=== PATIENT | female | born 1970 | race African-American/Black ===

== ENCOUNTER → 2016-09-17 | Outpatient (CLI) | payer MEDICARE ==
[2016-09-17 14:25] LABS: CHLAM PCR NOT DETECTED (NOT DETECT)
== END ==
LOC: LAB 12:46
PROVIDERS: ATTEND Nurse Practitioner Acute Care
DX: N39.0 Urinary tract infection, site not specified (principal); N89.8 Other specified noninflammatory disorders of vagina
CPT/HCPCS: 87086; 87088; 87186; 87210; 87491; 87591

== ENCOUNTER → 2017-03-21 | Outpatient (CLI) | payer MEDICARE, BC ==
--- NOTE | 2017-03-21 11:43 | WOMENS IMAGING REPORT ---
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 Selected color Doppler images recorded. LIMITATIONS: None. FINDINGS: Patient indicates a palpable abnormality in the right axilla. In this area, a 3 x 2.3 x 1 .8 cm lymph node and a 2.8 x 2.1 x 1.9 cm lymph node are present. Both of these lymph nodes exhibit cortical thickening, up to 9 mm in thickness. Given history of kena or breast cancer, ultrasound-guided core biopsy of these lymph nodes is recommended. IMPRESSION: Palpable abnormality along the right axilla correlates with 2 adjacent lymph nodes with cortical thickening. Ultrasound-guided core biopsy should be considered. BIRAD: 1 Negative. RECOMMENDATION: RECOMMENDED FOLLOW-UP: Follow-up as clinically indicated. COMMENT: The [employer] ([employer]) has developed recommendations for screening MRI of the breasts in certain patient populations, to be used in conjunction with mammography. Breast MRI s urveillance may be appropriate for women with more than 20% lifetime risk of developing breast cancer as determined by genetic testing, significant family history of the disease, or history of mantle r adiation for Hodgkins Disease. ACR Practice Guidelines 2007. TECHNICAL DOCUMENTATION: JOB ID: [id number] [employer]- All Rights Reserved
== END ==
LOC: WI 07:09
PROVIDERS: ATTEND Internal Medicine
DX: C50.412 Malignant neoplasm of upper-outer quadrant of left female breast (principal)
CPT/HCPCS: 76641

== ENCOUNTER → 2017-03-28 | Day surgery (SDC) | payer MEDICARE, BC ==
--- NOTE | 2017-04-02 12:20 | RADIOLOGY REPORT (SQ) ---
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 The patient was scanned and the area of interest in the right lower axilla/right lateral chest wall i n the area of palpable abnormality. This demonstrates enlarged lymph nodes which are similar compare d 03/21/2017. This area was targeted for ultrasound-guided core biopsy. After sterile skin prep and 3.5 mL local lidocaine 1% for skin and deep tissue anesthesia, a 14 gauge coaxial core biopsy needle was used to obtain several cores of tissue from the lesion. Under ultras ound guidance, a ribbon clip was placed in the areas sampled. There were no immediate post-procedure complications. Pathology yields a diagnosis of lymphoid population, favor follicular hyperplasia. No carcinoma iden tified Pathology is concordant. LIMITATIONS: None. FINDINGS: Ultrasound-guided right axilla/lateral chest wall lymph node biopsy as above. IMPRESSION: ULTRASOUND-GUIDED CORE BIOPSY OF THE RIGHT AXILLARY/ RIGHT LATERAL CHEST WALL LYMPH NODE S YIELDS A DIAGNOSIS OF LYMPHOID POPULATION, FAVOR FOLLICULAR HYPERPLASIA. NO CARCINOMA. COMMENT: Patient medication list reviewed: Yes- Quality ID# [id number]:Eligible professional attests to doc umenting in the medical record they obtained, updated, or reviewed the patient's current medications. TECHNICAL DOCUMENTATION: JOB ID: [id number] 1740[employer]- All Rights Reserved
== END ==
LOC: EDSTATUS 14:30 → RAD 14:31
PROVIDERS: ATTEND Internal Medicine
PROC: 07B53ZX Excision of Right Axillary Lymphatic, Percutaneous Approach, Diagnostic (ICD-10-PCS; principal; 2017-03-28)
DX: C50.412 Malignant neoplasm of upper-outer quadrant of left female breast (principal); R22.9 Localized swelling, mass and lump, unspecified
CPT/HCPCS: 38505; 76942; 88184; 88185; 88233; 88262; 88305; 88341; 88342

== ENCOUNTER → 2018-02-27 | Outpatient (CLI) | payer BC, MEDICARE ==
--- NOTE | 2018-02-27 18:15 | RADIOLOGY REPORT (SQ) ---
EXAM DESCRIPTION: WRIST RIGHT 2 VIEWS COMPLETED DATE/TIME: 02/27/2018 5:44 pm REASON FOR STUDY: M25.531 PAIN IN RIGHT WRIST R10.31 RIGHT LOWER QUADRANT PAIN M25.531 PAIN IN RIG HT WRIST COMPARISON: None. NUMBER OF VIEWS: Two views. TECHNIQUE: AP and lateral radiographic images acquired of the right wrist. LIMITATIONS: None. FINDINGS: MINERALIZATION: Normal. BONES: No acute fracture or dislocation. No worrisome bone lesions. Normal alignment. SOFT TISSUES: No soft tissue swelling. No foreign body. OTHER: No other significant finding. IMPRESSION: NO RADIOGRAPHIC EVIDENCE OF ACUTE INJURY. TECHNICAL DOCUMENTATION: JOB ID: [id number] [place]-72 2010 [employer]- All Rights Reserved Reading location - IP/workstation name: [employer]
--- NOTE | 2018-02-27 22:09 | RADIOLOGY REPORT (SQ) ---
EXAM DESCRIPTION: CT ABD/PELVIS WITH IV ORAL COMPLETED DATE/TIME: 02/27/2018 7:45 pm REASON FOR STUDY: R10.31RIGHT LOWER QUADRANT PAIN R10.31 RIGHT LOWER QUADRANT PAIN M25.531 PAIN IN RIGHT WRIST COMPARISON: 06/07/2016. TECHNIQUE: CT scan of the abdomen and pelvis performed using helical scanning technique with dynamic intravenous contrast injection. No oral contrast. Images reviewed with lung, soft tissue, and bone windows. Reconstructed coronal and sagittal MPR images reviewed. Delayed images for evaluation of the urinary system also acquired. All images stored on PACS. All CT scanners at this facility use dose modulation, iterative reconstruction, and/or weight based d osing when appropriate to reduce radiation dose to as low as reasonably achievable (ALARA). [facility]: Dose Right [facility]: CareDose [facility]: Dose Right [facility]: Teradose 4D [facility]: AskYou CONTRAST TYPE AND DOSE: contrast/concentration: Isovue 350.00 mg/ml; Total Contrast Delivered: 100.0 ml; Total Saline Delivered: 42.0 ml RENAL FUNCTION: Creatinine 0.6. RADIATION DOSE: CT Rad equipment meets quality standard of care and radiation dose reduction techniq ues were employed. CTDIvol: 19.9 - 21.0 mGy. DLP: 2271 mGy-cm.. LIMITATIONS: None. FINDINGS: LOWER CHEST: No significant findings. No nodules or infiltrates. LIVER: Normal size. No masses. Diffuse fatty infiltration. No dilated ducts. SPLEEN: Normal size. No focal lesions. PANCREAS: No masses. No significant calcifications. No adjacent inflammation or peripancreatic fluid collections. Pancreatic duct not dilated. GALLBLADDER: No identified stones by CT criteria. No inflammatory changes to suggest cholecystitis. ADRENAL GLANDS: No significant masses or asymmetry. RIGHT KIDNEY AND URETER: No solid masses. No significant calcifications. No hydronephrosis or hyd roureter. LEFT KIDNEY AND URETER: No solid masses. No significant calcifications. No hydronephrosis or hydr oureter. AORTA AND VESSELS: No aneurysm. No dissection. Renal arteries, SMA, celiac without stenosis. RETROPERITONEUM: No retroperitoneal adenopathy, hemorrhage or masses. BOWEL AND PERITONEAL CAVITY: No masses or inflammatory changes. No free fluid or peritoneal masses. APPENDIX: Normal. PELVIS: No mass. No free fluid. Normal bladder. ABDOMINAL WALL: Surgical changes with clips. No masses. No hernias. BONES: No significant or acute findings. OTHER: No other significant finding. IMPRESSION: FATTY INFILTRATION OF THE LIVER. OTHERWISE NO SIGNIFICANT OR ACUTE FINDING IN THE ABDOM EN OR PELVIS ON CT SCAN WITH IV CONTRAST. TECHNICAL DOCUMENTATION: JOB ID: [id number] Quality ID # [id number]: Final reports with documentation of one or more dose reduction techniques (e.g., Au tomated exposure control, adjustment of the mA and/or kV according to patient size, use of iterative reconstruction technique) 2010 [employer]- All Rights Reserved Reading location - IP/workstation name: [email or web address]
== END ==
LOC: RAD 17:41
PROVIDERS: ATTEND Internal Medicine
DX: M25.531 Pain in right wrist (principal); R10.31 Right lower quadrant pain
CPT/HCPCS: 74177; 82565